=== PATIENT | male | born 1940 | race Caucasian/White ===

== ENCOUNTER → 2020-01-14 | Outpatient (CLI) | payer MEDICARE | LOC: M RAD 08:30 | PROVIDERS: ATTEND Surgery | DX: K76.89 Other specified diseases of liver (principal); K82.8 Other specified diseases of gallbladder ==

== ENCOUNTER → 2020-02-02 | Outpatient (CLI) | payer MEDICARE ==
[2020-02-16 10:26] LABS: EOS # 0.1 10^3/uL (0.0-0.5); EOS % 1.4 % (0.0-3.0); HEMATOCRIT 32.6 % (42.0-52.0); HEMOGLOBIN 10.2 g/dl (13.5-17.5); LYMPH # 1.1 10^3/uL (1.5-5.0); LYMPH % 24.4 % (24.0-44.0); MEAN CORPUSCULAR HEMOGLOBIN 28.3 pg (27.0-33.0); MEAN CORPUSCULAR HGB CONC 31.3 g/dl (32.0-36.5); MEAN CORPUSCULAR VOLUME 90.6 fl (80.0-96.0); MONO # 0.4 10^3/uL (0.0-0.8); MONO % 9.3 % (0.0-5.0); NEUTROPHILS # 2.8 10^3/uL (1.5-8.5); PLATELET COUNT, AUTOMATED 318 10^3/uL (150-450); WHITE BLOOD COUNT 4.3 10^3/uL (4.0-10.0)
[2020-02-17 11:34] LABS: ANTI-MITOCHONDRIAL ANTIBODY SEE SEPARATE REPORT; ANTI-SMOOTH MUSCLE ANTIBODY SEE SEPARATE REPORT; Alkaline Phosphatase Iso-Bone SEE SEPARATE REPORT; Alkaline Phosphatase Iso-Intes SEE SEPARATE REPORT; Alkaline Phosphatase Iso-Liver SEE SEPARATE REPORT; TOTAL ALK PHOS SEE SEPARATE REPORT
[2020-02-29 21:39] LABS: ALBUMIN 3.4 GM/DL (3.2-5.2); ALT/SGPT 90 U/L (12-78); BILIRUBIN,TOTAL 1.3 MG/DL (0.2-1.0); BLOOD UREA NITROGEN 22 MG/DL (7-18); CALCIUM LEVEL 9.2 MG/DL (8.8-10.2); CARBON DIOXIDE LEVEL 28 MEQ/L (21-32); CHLORIDE LEVEL 105 MEQ/L (98-107); CREATININE FOR GFR 1.04 MG/DL (0.70-1.30); GLOMERULAR FILTRATION RATE > 60.0 (>35); GLUCOSE, FASTING 90 MG/DL (70-100); POTASSIUM SERUM 4.7 MEQ/L (3.5-5.1); SODIUM LEVEL 138 MEQ/L (136-145); TOTAL PROTEIN 7.2 GM/DL (6.4-8.2)
== END ==
LOC: M LAB 14:18
PROVIDERS: ATTEND Internal Medicine
DX: D72.819 Decreased white blood cell count, unspecified (principal); K74.5 Biliary cirrhosis, unspecified; R74.8 Abnormal levels of other serum enzymes

== ENCOUNTER → 2021-12-15 | Outpatient (REF) | payer MEDICARE ==
[2021-12-15 21:18] LABS: PERCENT SATURATION 32.8 % (19.7-50.0)
== END ==
LOC: M LAB REF 17:49
PROVIDERS: ATTEND Internal Medicine
DX: D64.9 Anemia, unspecified (principal)